=== PATIENT | male | born 1950 | race Caucasian/White ===

== ENCOUNTER → 2018-04-28 | Outpatient (REF) | payer MEDICARE, MEDICAID ==
[~2018-04-28] MED LIST: AMLODIPINE5 MG PO; BIAXIN500 MG PO; CHILD ASA LS81 MG PO; CLOPIDOGREL75 MG PO; HYDRALAZINE25 MG PO; LOVASTATIN20 M1 PO; PERCOCET 5/325M1 TAB PO; TOPROL XL25 M1 PO
[2018-04-28 10:03] LABS: HEMATOCRIT 42.5 % (39.0-50.0); HEMOGLOBIN 14.4 g/dl (14.0-18.0); MEAN CORPUSCULAR HGB 32.7 pG CALC (26.0-32.0); MEAN CORPUSCULAR HGB CONC 33.9 g/L CALC (32.0-36.0); RED BLOOD COUNT 4.41 mill/uL (4.70-6.10)
[2018-04-28 10:08] LABS: MEAN CELL VOLUME 96.4 fL CALC (80.0-100.0)
[2018-04-28 10:24] LABS: ALBUMIN 3.8 g/dL (3.2-5.0); ALKALINE PHOSPHATASE 74 u/l (38-126); BILIRUBIN, TOTAL 0.6 mg/dL (0.0-1.4); BUN 10 mg/dL (8-23); BUN/CREATININE RATIO 12 (12-20 (CALC)); CALCULATED LDLCHOLESTEROL 95 mg/dL (62-129 (CALC)); CHLORIDE 104 mmol/l (95-108); CHOLESTEROL HDL RATIO 2.7 (<4.4 (CALC)); CREATININE 0.9 mg/dL (0.7-1.3); GFR > 60 ML/MIN (>=60 (CALC)); GFR FOR AFR.AMER. > 60 ML/MIN (>=60 (CALC)); HDL CHOLESTEROL 64 mg/dL (>=40); POTASSIUM 4.3 mmol/l (3.5-5.1); SODIUM 141 mmol/l (137-146); TOTAL CHOLESTEROL 174 mg/dl (0-199); TOTAL PROTEIN 6.1 g/dL (6.3-8.2); TOTAL TRIGLYCERIDES 77 mg/dl (30-149); VLDL CHOLESTROL 15 mg/dl (4-45 (CALC))
[2018-04-28 10:44] LABS: TSH, 3RD GENERATION 4.29 uIU/mL (0.47 - 4.68)
[2018-04-28 11:01] LABS: ANION GAP 13 (6-22 (CALC)); CARBON DIOXIDE 28 mmol/l (22-30); SGOT/AST 30 u/l (19-48)
== END | disposition home or self-care (01) ==
LOC: LAB 08:42
PROVIDERS: ATTEND Nurse Practitioner
DX: E78.49 Other hyperlipidemia (principal); I10 Essential (primary) hypertension

== ENCOUNTER 2018-11-05 19:20 | Emergency (ER) | payer MEDICARE ==
[~2018-11-05] VITALS: Ht 170.2 cm; Wt 55.4 kg
[2018-11-05 20:50] LABS: HEMATOCRIT 38.8 % (39.0-50.0); IMMATURE GRANULOCYTES 1.2 % (0.0-5.0); MEAN CELL VOLUME 90.9 fL CALC (80.0-100.0); MEAN CORPUSCULAR HGB 30.4 pG CALC (26.0-32.0); MEAN CORPUSCULAR HGB CONC 33.5 g/L CALC (32.0-36.0); NEUT# 5.1 thou/uL (1.82-7.42); RED BLOOD COUNT 4.27 mill/uL (4.70-6.10); RED CELL DISTRI WIDTH 13.3 % (11.5-15.5)
[2018-11-05 21:07] LABS: ALBUMIN 3.3 g/dL (3.2-5.0); ALKALINE PHOSPHATASE 71 u/l (38-126); ANION GAP 14 (6-22 (CALC)); BILIRUBIN, TOTAL 0.6 mg/dL (0.0-1.4); BUN 19 mg/dL (8-23); BUN/CREATININE RATIO 26 (12-20 (CALC)); CARBON DIOXIDE 28 mmol/l (22-30); CHLORIDE 98 mmol/l (95-108); CREATININE 0.7 mg/dL (0.7-1.3); GFR > 60 ML/MIN (>=60 (CALC)); GFR FOR AFR.AMER. > 60 ML/MIN (>=60 (CALC)); POTASSIUM 4.7 mmol/l (3.5-5.1); SGOT/AST 15 u/l (19-48); SODIUM 135 mmol/l (137-146); TOTAL PROTEIN 5.9 g/dL (6.3-8.2)
[2018-11-05 23:00] VITALS: BP 145/72
[2018-11-05] MEDS ORDERED: TYLENOL & COD12.5 ML PO (23:02)
[2018-11-05] MEDS ORDERED: LIDOCAINE HCL VIS2 % PO (23:02)
== END 2018-11-05 23:15 | disposition home or self-care (01) ==
LOC: ED 19:20
PROVIDERS: Family Medicine
DX: R13.10 Dysphagia, unspecified (principal); I10 Essential (primary) hypertension; Z85.21 Personal history of malignant neoplasm of larynx; Z98.890 Other specified postprocedural states
CPT/HCPCS: Q9967

== ENCOUNTER 2018-12-20 17:12 | Emergency (ER) | payer MEDICARE ==
[~2018-12-20] VITALS: Ht 170.2 cm; Wt 64.0 kg
[~2018-12-20 17:12] MED LIST changes: +LIDOCAINE HCL VIS2 % PO; +TYLENOL & COD12.5 ML PO
[2018-12-20] MEDS ORDERED: BACTRIM DS1 TAB PO (18:49)
[2018-12-20 19:10] VITALS: BP 161/70
== END 2018-12-20 19:10 | disposition home or self-care (01) ==
LOC: ED 17:12
DX: K94.22 Gastrostomy infection (principal); L03.311 Cellulitis of abdominal wall; I10 Essential (primary) hypertension; C32.9 Malignant neoplasm of larynx, unspecified; Y83.3 Surgical operation with formation of external stoma as the cause of abnormal reaction of the patient, or of later complication, without mention of misadventure at the time of the procedure; B95.62 Methicillin resistant Staphylococcus aureus infection as the cause of diseases classified elsewhere

== ENCOUNTER 2018-12-27 07:44 | Emergency (ER) | payer MEDICARE ==
[~2018-12-27] VITALS: Ht 170.2 cm; Wt 55.0 kg
[~2018-12-27 07:44] MED LIST changes: -AMLODIPINE5 MG PO; +BACTRIM DS1 TAB PO; +NORVASC5 M1 PO
[2018-12-27] MEDS ORDERED: APRESOLINE25 MG/TAB PO (08:14)
[2018-12-27] MEDS ORDERED: ASPIRIN81 MG PO (08:15)
[2018-12-27] MEDS ORDERED: LOVASTATIN20 M1 PO (08:15)
[2018-12-27 08:28] LABS: IMMATURE GRANULOCYTES 0.9 % (0.0-5.0); MEAN CELL VOLUME 88.9 fL CALC (80.0-100.0); MEAN CORPUSCULAR HGB 28.5 pG CALC (26.0-32.0); MEAN CORPUSCULAR HGB CONC 32.1 g/L CALC (32.0-36.0); NEUT# 7.5 thou/uL (1.82-7.42); RED BLOOD COUNT 3.23 mill/uL (4.70-6.10); RED CELL DISTRI WIDTH 13.1 % (11.5-15.5)
[2018-12-27 08:31] LABS: HEMATOCRIT 28.7 % (39.0-50.0); HEMOGLOBIN 9.2 g/dl (14.0-18.0)
[2018-12-27 08:42] LABS: ALBUMIN 3.1 g/dL (3.2-5.0); ANION GAP 14 (6-22 (CALC)); BILIRUBIN, TOTAL 0.6 mg/dL (0.0-1.4); BUN 14 mg/dL (8-23); BUN/CREATININE RATIO 25 (12-20 (CALC)); CARBON DIOXIDE 30 mmol/l (22-30); CHLORIDE 92 mmol/l (95-108); CREATININE 0.6 mg/dL (0.7-1.3); GFR > 60 ML/MIN (>=60 (CALC)); GFR FOR AFR.AMER. > 60 ML/MIN (>=60 (CALC)); POTASSIUM 4.3 mmol/l (3.5-5.1); SGOT/AST 25 u/l (19-48); SODIUM 131 mmol/l (137-146); TOTAL PROTEIN 5.9 g/dL (6.3-8.2)
[2018-12-27 08:43] LABS: ALKALINE PHOSPHATASE 149 u/l (38-126)
[2018-12-27] MEDS ORDERED: BACTRIM DS1 TAB PO (09:38)
[2018-12-27] MEDS ORDERED: ZPAK PO (09:38)
[2018-12-27 09:47] VITALS: BP 164/68
== END 2018-12-27 10:38 | disposition home or self-care (01) ==
LOC: ED 07:44
PROVIDERS: Emergency Medicine
DX: J06.9 Acute upper respiratory infection, unspecified (principal); J95.09 Other tracheostomy complication; I10 Essential (primary) hypertension; C32.9 Malignant neoplasm of larynx, unspecified; Z93.1 Gastrostomy status; B96.5 Pseudomonas (aeruginosa) (mallei) (pseudomallei) as the cause of diseases classified elsewhere

== ENCOUNTER 2018-12-29 16:16 | Inpatient (IN) | payer MEDICARE ==
[~2018-12-29] VITALS: Ht 170.2 cm; Wt 55.0 kg
[~2018-12-29 16:16] MED LIST changes: +APRESOLINE25 MG/TAB PO; +ASPIRIN81 MG PO; +ZPAK PO
[2018-12-29 17:06] VITALS: BP 133/47
[2018-12-29] MEDS ORDERED: LEVOTHYROXIN100 MCG PO (17:08)
[2018-12-29] MEDS ORDERED: OXYCODONE H5 MG/5 M1 PEG (17:14)
[2018-12-29 17:45] VITALS: BP 141/60
[2018-12-30 00:04] VITALS: BP 142/66
[2018-12-30 04:50] VITALS: BP 178/70
[2018-12-30 05:08] LABS: HEMATOCRIT 27.5 % (39.0-50.0); HEMOGLOBIN 8.7 g/dl (14.0-18.0); MEAN CELL VOLUME 87.9 fL CALC (80.0-100.0); MEAN CORPUSCULAR HGB 27.8 pG CALC (26.0-32.0); MEAN CORPUSCULAR HGB CONC 31.6 g/L CALC (32.0-36.0); RED BLOOD COUNT 3.13 mill/uL (4.70-6.10); RED CELL DISTRI WIDTH 13.4 % (11.5-15.5)
[2018-12-30 05:20] LABS: ALBUMIN 2.9 g/dL (3.2-5.0); ALKALINE PHOSPHATASE 132 u/l (38-126); ANION GAP 14 (6-22 (CALC)); BUN 18 mg/dL (8-23); BUN/CREATININE RATIO 30 (12-20 (CALC)); CARBON DIOXIDE 28 mmol/l (22-30); CHLORIDE 93 mmol/l (95-108); CREATININE 0.6 mg/dL (0.7-1.3); GFR > 60 ML/MIN (>=60 (CALC)); GFR FOR AFR.AMER. > 60 ML/MIN (>=60 (CALC)); POTASSIUM 4.8 mmol/l (3.5-5.1); SGOT/AST 22 u/l (19-48); SODIUM 131 mmol/l (137-146); TOTAL PROTEIN 5.6 g/dL (6.3-8.2)
[2018-12-30 05:24] LABS: BILIRUBIN, TOTAL 0.3 mg/dL (0.0-1.4)
[2018-12-30 07:38] VITALS: BP 117/51
[2018-12-30 11:36] VITALS: BP 117/51
== END 2018-12-30 12:07 | disposition home or self-care (01) | DRG 394 ==
LOC: MS2 16:16
PROVIDERS: ADMIT Internal Medicine; ATTEND Internal Medicine
DX: K94.29 Other complications of gastrostomy (principal); J95.09 Other tracheostomy complication; Z22.322 Carrier or suspected carrier of Methicillin resistant Staphylococcus aureus; C32.9 Malignant neoplasm of larynx, unspecified; E78.00 Pure hypercholesterolemia, unspecified; N28.9 Disorder of kidney and ureter, unspecified; T36.1X5A Adverse effect of cephalosporins and other beta-lactam antibiotics, initial encounter; L29.9 Pruritus, unspecified; I10 Essential (primary) hypertension; Z92.3 Personal history of irradiation; Z92.21 Personal history of antineoplastic chemotherapy
CPT/HCPCS: J0278; J0692; Q3014